=== PATIENT | male | born 1980 | race Caucasian/White ===

== ENCOUNTER 2017-01-17 11:11 | Emergency (ER) | payer SELFPAY ==
--- NOTE | 2017-01-17 11:18 | ED Physician Chart ---
Chief Complaint/HPI - Patient Information Date Seen:: 01/17/17 Time Seen:: 11:12 Chief Complaint:: groin pain History of Present Illness:: 36-year-old male admits to methamphetamine abuse, comes with acute, severe, 10 out of 10, aching and sharp, right groin that radiates to the right testicle. Started about 30 minutes prior to arrival to the ER. Has associated increased agitation and anxiety. Denies, trauma, abdominal pain, nausea, vomiting, gross hematuria, dysuria, chest pain, palpitations, acute vision changes, headache. Historian:: Patient Review:: Nurse's Note Reviewed Review of Systems - Review of Systems Other: Complete system review otherwise unremarkable except as noted in history of present illness. Family Medical History - Family Member Mother Hx Family Cancer: No Hx Family Congestive Heart Failure: No Hx Family Hypertension: No Hx Family Seizures: No Hx Family Dementia: No Hx Family AIDS: No Hx Family COPD: No Hx Family Hepatitis: No Hx Family Psychiatric Problems: No Hx Family Tuberculosis: No Labs/Radiology/EKG Results - Lab Results Results: Lab Results 01/17/17 01/17/17 01/17/17 Range/Units 11:33 11:33 11:33 WBC 13.2 H (4.8-10.8) Th/cmm RBC 5.36 (4.30-5.70) Mil/cmm Hgb 16.1 (13.2-17.3) gm/dL Hct 45.7 (39.0-49.0) % MCV 85.1 (80-99) fl MCH 30.0 (26.0-30.0) pg MCHC Differential 35.3 (28.0-36.0) pg RDW 12.0 (11.5-20.0) % Plt Count 271 (150-400) Th/cmm MPV 7.2 fl Neutrophils % 76.7 (40.0-80.0) % Lymphocytes % 14.1 L (20.0-50.0) % Monocytes % 6.1 (2.0-10.0) % Eosinophils % 0.5 (0.0-5.0) % Basophils % 2.6 H (0.0-2.0) % Sodium 137 (136-145) mEq/L Potassium 4.0 (3.5-5.1) mEq/L Chloride 105 (98-107) mEq/L Carbon Dioxide 20.7 L (21.0-31.0) mEq/L Anion Gap 15.3 (7.0-16.0) BUN 16 (7-25) mg/dL Creatinine 1.5 H (0.7-1.3) mg/dL Est GFR ( Amer) > 60.0 (>90) ml/min Est GFR (Non-Af Amer) 55.7 ml/min BUN/Creatinine Ratio 10.7 Glucose 124 H (70-105) mg/dL Whole Bld Lactic Acid 1.81 (0.60-1.99) mmol/L Calcium 10.3 (8.6-10.3) mg/dL Total Bilirubin 1.2 H (0.3-1.0) mg/dL AST 23 (13-39) U/L ALT 16 (7-52) U/L Alkaline Phosphatase 68 (34-104) U/L Total Protein 7.5 (6.0-8.3) gm/dL Albumin 4.6 (4.2-5.5) gm/dL Globulin 2.9 gm/dL Albumin/Globulin Ratio 1.6 (1.0-1.8) Lipase (11-82) U/L 01/17/17 Range/Units 11:33 WBC (4.8-10.8) Th/cmm RBC (4.30-5.70) Mil/cmm Hgb (13.2-17.3) gm/dL Hct (39.0-49.0) % MCV (80-99) fl MCH (26.0-30.0) pg MCHC Differential (28.0-36.0) pg RDW (11.5-20.0) % Plt Count (150-400) Th/cmm MPV fl Neutrophils % (40.0-80.0) % Lymphocytes % (20.0-50.0) % Monocytes % (2.0-10.0) % Eosinophils % (0.0-5.0) % Basophils % (0.0-2.0) % Sodium (136-145) mEq/L Potassium (3.5-5.1) mEq/L Chloride (98-107) mEq/L Carbon Dioxide (21.0-31.0) mEq/L Anion Gap (7.0-16.0) BUN (7-25) mg/dL Creatinine (0.7-1.3) mg/dL Est GFR ( Amer) (>90) ml/min Est GFR (Non-Af Amer) ml/min BUN/Creatinine Ratio Glucose (70-105) mg/dL Whole Bld Lactic Acid (0.60-1.99) mmol/L Calcium (8.6-10.3) mg/dL Total Bilirubin (0.3-1.0) mg/dL AST (13-39) U/L ALT (7-52) U/L Alkaline Phosphatase (34-104) U/L Total Protein (6.0-8.3) gm/dL Albumin (4.2-5.5) gm/dL Globulin gm/dL Albumin/Globulin Ratio (1.0-1.8) Lipase 7 L (11-82) U/L - Radiology Results Results: Ultrasound scrotum and inguinal region Calcifications on the right epididymis, inguinal hernia, nonincarcerated. ED Septic Shock - . Is Septic Shock (SBP<90, OR Lactate>4 mmol\L) present?: No Reassessment (Disposition) - Reassessment Reassessment:: Blood pressure was noted to be elevated over 120/80. There were no signs of hypertension. Discussed the findings with the patient and recommended that the patient follow up with the primary care physician regarding the elevated blood pressure. Reassessment Condition:: Improved - Diagnosis Diagnosis:: Acute suprapubic pain due to nonincarcerated right inguinal hernia Chronic epididymitis Elevated blood pressure without the diagnosis of hypertension - Aftercare/Follow up Instructions Aftercare/Follow-Up Instructions:: Counseled pt regarding lab results/diagnosis & need follow up, Refer to Discharge Instructions Medication Prescribed:: Bactrim DS Ibuprofen - Patient Disposition Discharge/Transfer:: Home Time:: 12:55 Condition at Disposition:: Improved ED Discharge Plan - Patient Disposition Admit/Discharge/Transfer: PT DISCHARGED HOME Condition at Disposition: Improved Instructions: Inguinal Hernia, Adult Additional Instructions: You will need to follow-up with your primary care physician for possible referral to general surgery for elective inguinal hernia repair.
[2017-01-17] MEDS ORDERED: Morphine Sulfate 2 mg/mL 1mL Syr IVP ONE (11:20)
[2017-01-17] MEDS ORDERED: Sodium Chloride 0.9% 1,000 ML IV ONE (11:20)
[2017-01-17] MEDS ORDERED: Prochlorperazine 5 mg/mL 2mL Vial IVP STA (11:20)
[2017-01-17] MEDS ORDERED: Morphine Sulfate 2 mg/mL 1mL Syr ONE (11:42)
[2017-01-17] MEDS ORDERED: Prochlorperazine 5 mg/mL 2mL Vial ONE (11:42)
[2017-01-17 11:48] LABS: % BASOPHILS 2.6 % (0.0-2.0); % EOSINOPHILS 0.5 % (0.0-5.0); % LYMPHOCYTES 14.1 % (20.0-50.0); % MONOCYTES 6.1 % (2.0-10.0); % NEUTROPHILS 76.7 % (40.0-80.0); HEMATOCRIT 45.7 % (39.0-49.0); HEMOGLOBIN 16.1 gm/dL (13.2-17.3); MEAN CELL VOLUME 85.1 fl (80-99); MEAN CORPUSCULAR HGB CONC 35.3 pg (28.0-36.0); MEAN PLATELET VOLUME 7.2 fl; NEUTROPHILE ABSOLUTE 10.1 Th/cmm (1.8-8.0); PLATELET COUNT 271 Th/cmm (150-400); RED BLOOD COUNT 5.36 Mil/cmm (4.30-5.70)
[2017-01-17 11:51] LABS: WHITE BLOOD COUNT 13.2 Th/cmm (4.8-10.8)
[2017-01-17 12:03] LABS: ALB/GLOB RATIO 1.6 (1.0-1.8); ALKALINE PHOSPHATASE 68 U/L (34-104); ANION GAP 15.3 (7.0-16.0); BILIRUBIN,TOTAL 1.2 mg/dL (0.3-1.0); BUN - UREA NITROGEN 16 mg/dL (7-25); BUN/CREATININE RATIO 10.7; CALCIUM SERUM 10.3 mg/dL (8.6-10.3); CARBON DIOXIDE 20.7 mEq/L (21.0-31.0); CHLORIDE 105 mEq/L (98-107); CREATININE - SERUM 1.5 mg/dL (0.7-1.3); GLUCOSE 124 mg/dL (70-105); SGOT 23 U/L (13-39); SGPT/ALT 16 U/L (7-52); SODIUM SERUM 137 mEq/L (136-145)
--- NOTE | 2017-01-18 10:42 | Diagnostic Imaging Report ---
Testicular/scrotal ultrasound HISTORY: Pain The right testis measures 4.1 x 2.0 x 2.3 cm. No focal parenchymal lesions. Normal testicular vascular flow. There are 2 echogenic foci involving the head of the right epididymis. The largest measures 5 mm. Findings are probably associated with inflammatory sequelae. No hydrocele is seen. The left testis measures 4.4 x 2.2 x 2.8 cm. No focal intratesticular lesions. Normal testicular vascular flow. The left epididymis appears normal. Heterogeneous density noted in the right inguinal area. Changes associated with the hernia cannot be excluded. Correlation with physical examination and if necessary a CT scan would provide additional assessment. IMPRESSION: 1. Heterogeneous density within the right inguinal area. A hernia cannot be excluded. Correlation with physical examination and if necessary a CT scan would provide additional assessment. 2. Small echogenic foci within the head of the right epididymis. Changes are probably related to inflammatory sequelae.
== END 2017-01-17 13:25 | disposition home or self-care (01) ==
LOC: ER 11:11
DX: K40.90 Unilateral inguinal hernia, without obstruction or gangrene, not specified as recurrent (principal); N45.1 Epididymitis; R03.0 Elevated blood-pressure reading, without diagnosis of hypertension
CPT/HCPCS: 99285; 96374; 96375; 76870; 36415; 83605; 85025; 83690; 80053; 87040 ×2; J2270; J1885; J2405; J0780; J7030